=== PATIENT | female | born 1955 | race Caucasian/White ===

== ENCOUNTER 2017-10-28 15:50 | Emergency (ER) | payer OTHER ==
--- NOTE | 2017-10-28 16:10 | PDOC ---
History of Present Illness <Gregg Miller - Last Filed: 10/28/17 16:09> - General History Source: Patient Exam Limitations: No Limitations - History of Present Illness Initial Comments: 10/28/17 16:44 The patient is a 62 year old female with past medical history of Lupus and Rheumatoid Arthritis who presents to the ED with complaints of dizziness and abdominal pain for the past few days. The patient states that her symptoms came on suddenly while driving a few days ago where she got a headache and the room began to spin. At the same time, she began experiencing RUQ and RLQ pain. Although her headache has subsided, her other symptoms has persisted. She states her symptoms are associated with some nausea but no vomiting. She reports one episode of diarrhea as well. The patient went to her PCP today for her symptoms and was advised to go to the ER for evaluation of her gallbladder and her appendix. She denies any fever, chills, cough, SOB, CP, or urinary complaints. <Denise Delgadillo - Last Filed: 10/28/17 16:44> <Alfonso Walker - Last Filed: 10/28/17 19:30> - General Chief Complaint: Pain Stated Complaint: RIGHT ABDOMINAL PAIN Past History - Past Medical History Anemia: No Asthma: No Cancer: No Cardiac Disorders: No CVA: No COPD: No CHF: No Dementia: No Diabetes: No GI Disorders: No Disorders: No HTN: No Hypercholesterolemia: No Liver Disease: No Seizures: No Thyroid Disease: No - Surgical History Abdominal Surgery: No Appendectomy: No Cardiac Surgery: No Cholecystectomy: No Lung Surgery: No Neurologic Surgery: No Orthopedic Surgery: No - Suicide/Smoking/Psychosocial Hx Smoking History: Never smoked Have you smoked in the past 12 months: No Hx Alcohol Use: No Drug/Substance Use Hx: No Substance Use Type: None <Gregg Miller - Last Filed: 10/28/17 16:09> <Denise Delgadillo - Last Filed: 10/28/17 16:44> <Alfonso Walker - Last Filed: 10/28/17 19:30> - Past Medical History Allergies/Adverse Reactions: Allergies Allergy/AdvReac Type Severity Reaction Status Date / Time Cephalosporins Allergy Low Blood Verified 10/28/17 16:26 Pressure Sulfa (Sulfonamide Allergy Rash Verified 10/28/17 16:26 Antibiotics) [Sulfa(Sulfonamide Antibiotics)] Home Medications: Ambulatory Orders Hydroxychloroquine Sulfate [Plaquenil] 200 mg PO DAILY 10/28/17 Meclizine HCl 25 mg PO BID PRN #12 tab.chew 10/28/17 Metoclopramide HCl [Reglan] 10 mg PO BID PRN #8 tablet 10/28/17 Review of Systems - Review of Systems Able to Perform ROS?: Yes Comments:: 10/28/17 16:44 GENERAL/CONSTITUTIONAL: No fever or chills. No weakness. HEAD, EYES, EARS, NOSE AND THROAT: No change in vision. No ear pain or discharge. No sore throat. CARDIOVASCULAR: No chest pain or shortness of breath. RESPIRATORY: No cough, wheezing, or hemoptysis. GASTROINTESTINAL: Present: nausea, abdominal pain No vomiting or constipation. GENITOURINARY: No dysuria, frequency, or change in urination. MUSCULOSKELETAL: No joint or muscle swelling or pain. No neck or back pain. SKIN: No rash NEUROLOGIC: Present: headache, vertigo No loss of consciousness, or change in strength/sensation. ENDOCRINE: No increased thirst. No abnormal weight change. HEMATOLOGIC/LYMPHATIC: No anemia, easy bleeding, or history of blood clots. ALLERGIC/IMMUNOLOGIC: No hives or skin allergy. All Other Systems: Reviewed and Negative <Denise Delgadillo - Last Filed: 10/28/17 16:44> *Physical Exam - Vital Signs Last Vital Signs Temp Pulse Resp BP Pulse Ox 98.3 F 78 16 159/93 99 10/28/17 16:08 10/28/17 16:08 10/28/17 16:08 10/28/17 16:08 10/28/17 16:08 - Physical Exam Comments: 10/28/17 16:45 GENERAL: Awake, alert, and fully oriented, in no acute distress HEAD: No signs of trauma EYES: PERRLA, EOMI, sclera anicteric, conjunctiva clear ENT: Auricles normal inspection, hearing grossly normal, nares patent, oropharynx clear without exudates. Moist mucosa NECK: Normal ROM, supple, no lymphadenopathy, JVD, or masses LUNGS: Breath sounds equal, clear to auscultation bilaterally. No wheezes, and no crackles HEART: Regular rate and rhythm, normal S1 and S2, no murmurs, rubs or gallops ABDOMEN: Right sided abdominal wall tenderness. Soft, normoactive bowel sounds. No guarding, no rebound. No masses EXTREMITIES: Normal range of motion, no edema. No clubbing or cyanosis. No cords, erythema, or tenderness NEUROLOGICAL: Horizontal nystagmus. Cranial nerves II through XII grossly intact. Normal speech, normal gait SKIN: Warm, Dry, normal turgor, no rashes or lesions noted. <Denise Delgadillo - Last Filed: 10/28/17 16:44> - Vital Signs Last Vital Signs Temp Pulse Resp BP Pulse Ox 98.3 F 78 16 159/93 99 10/28/17 16:08 10/28/17 16:08 10/28/17 16:08 10/28/17 16:08 10/28/17 16:08 <Alfonso Walker - Last Filed: 10/28/17 19:30> ED Treatment Course - ADDITIONAL ORDERS Additional order review: Laboratory Results 10/28/17 16:10 Urine Color Yellow Urine Appearance Clear Urine pH 5.5 Ur Specific [place] >= 1.030 H Urine Protein Negative Urine Glucose (UA) Negative Urine Ketones Trace Urine Blood 1+ H Urine Nitrite Negative Urine Bilirubin 1+ H Urine Urobilinogen 0.2 Ur Leukocyte Esterase 2+ H <Denise Delgadilol - Last Filed: 10/28/17 16:44> - LABORATORY CBC & Chemistry Diagram: 10/28/17 16:50 10/28/17 16:50 - ADDITIONAL ORDERS Additional order review: Laboratory Results 10/28/17 10/28/17 10/28/17 16:50 16:50 16:50 PT with INR 12.4 INR 1.11 Sodium 139 Potassium 4.0 Chloride 103 Carbon Dioxide 27 Anion Gap 9 BUN 13 Creatinine 0.8 Creat Clearance w eGFR > 60 Random Glucose 102 Calcium 9.7 Total Bilirubin 0.6 AST 23 ALT 28 Alkaline Phosphatase 78 Total Protein 7.0 Albumin 4.7 Urine Color Urine Appearance Urine pH Ur Specific [place] Urine Protein Urine Glucose (UA) Urine Ketones Urine Blood Urine Nitrite Urine Bilirubin Urine Urobilinogen Ur Leukocyte Esterase Blood Type AB POSITIVE Antibody Screen Negative 10/28/17 16:10 PT with INR INR Sodium Potassium Chloride Carbon Dioxide Anion Gap BUN Creatinine Creat Clearance w eGFR Random Glucose Calcium Total Bilirubin AST ALT Alkaline Phosphatase Total Protein Albumin Urine Color Yellow Urine Appearance Clear Urine pH 5.5 Ur Specific [place] >= 1.030 H Urine Protein Negative Urine Glucose (UA) Negative Urine Ketones Trace Urine Blood 1+ H Urine Nitrite Negative Urine Bilirubin 1+ H Urine Urobilinogen 0.2 Ur Leukocyte Esterase 2+ H Blood Type Antibody Screen 10/28/17 16:50 RBC 5.55 H MCV 88.6 MCHC 33.2 RDW 12.2 MPV 8.9 Neutrophils % 49.5 Lymphocytes % 41.0 H Monocytes % 7.8 Eosinophils % 0.9 Basophils % 0.8 - Medications Given in the ED: ED Medications Discontinued Medications Generic Name Dose Route Start Last Admin Trade Name Freq PRN Reason Stop Dose Admin Meclizine HCl 25 mg 10/28/17 16:38 10/28/17 16:44 Antivert - PO 10/28/17 16:39 25 mg ONCE ONE Administration Ondansetron HCl 8 mg 10/28/17 17:13 10/28/17 18:25 Zofran Odt - SL 10/28/17 17:14 8 mg ONCE ONE Administration <Alfonso Walker - Last Filed: 10/28/17 19:30> Medical Decision Making - Medical Decision Making 10/28/17 19:27 no new/ changed urinary symptoms otherwise symptoamtically improved. reports of imaging given to pt to bring to MD. at time of discharge, neurologically intact complaining only of "unable to focus " <Alfonso Walker - Last Filed: 10/28/17 19:30> *DC/Admit/Observation/Transfer - Attestations Physician Attestion: 10/28/17 16:09 I, Dr. Gregg Miller, attest that this document has been prepared under my direction and personally reviewed by me in its entirety. I further attest, that it accurately reflects all work, treatment, procedures and medical decision -making performed by me. <Gregg Miller - Last Filed: 10/28/17 16:09> - Attestations Scribe Attestion: 10/28/17 16:46 Documentation prepared by Denise Delgadillo, acting as medical research scientist for Gregg Miller DO. <Denise Delgadillo - Last Filed: 10/28/17 16:44> <Alfonso Walker - Last Filed: 10/28/17 19:30> Diagnosis at time of Disposition: Vertigo - Discharge Dispostion Disposition: HOME Condition at time of disposition: Good - Referrals Referrals: Marisa Magallon [Primary Care Provider] - Call tomorrow - Patient Instructions Printed Discharge Instructions: DI for Vertigo - Post Discharge Activity
[2017-10-28 16:28] LABS: PH,URINE 5.5 (4.5-8); URINE APPEARANCE Clear; URINE BILIRUBIN 1+ (NEGATIVE); URINE GLUCOSE (UA) Negative (NEGATIVE); URINE KETONE Trace (NEGATIVE); URINE NITRITE Negative (NEGATIVE); URINE PROTEIN Negative (NEGATIVE); URINE UROBILINOGEN 0.2 (0.2-1.0)
[2017-10-28 16:29] LABS: URINE BLOOD 1+ (NEGATIVE); URINE COLOR YELLOW; URINE LEUK ESTERASE 2+ (NEGATIVE)
[2017-10-28 16:32] VITALS: BP 159/93; PULSE 78; TEMP 98.3; BMI 29.2
[2017-10-28] MEDS ORDERED: MECLIZINE HCL 25 MG TABLET (FP) PO ONE (16:38)
[2017-10-28] MEDS ORDERED: MECLIZINE HCL 25 MG TABLET (FP) ONE (16:42)
[2017-10-28] MEDS ORDERED: ONDANSETRON *ODT* 4 MG TABLET SL ONE (17:13)
[2017-10-28 17:14] LABS: BASOPHIL 0.8 % (0-2.0); EOSINOPHIL 0.9 % (0-4.5); MCH 29.4 pg (25.7-33.7); MCHC 33.2 g/dl (32.0-36.0); MEAN CELL VOLUME 88.6 fl (80-96); MEAN PLT VOLUME 8.9 fl (7.5-11.1); NEUTROPHILS 49.5 % (42.8-82.8); PLATELET COUNT 273 K/MM3 (134-434); RDW 12.2 % (11.6-15.6)
[2017-10-28 17:20] LABS: INR 1.11 (0.82-1.09); PROTHROMBIN TIME (PATIENT) 12.4 SEC (10.2-13.0)
[2017-10-28 17:25] LABS: ALBUMIN 4.7 g/dl (3.5-5.0); ALK PHOS 78 U/L (32-92); ANION GAP 9 (8-16); BILIRUBIN,TOTAL 0.6 mg/dl (0.2-1.0); CALCIUM 9.7 mg/dl (8.4-10.2); CO2 27 mmol/L (22-28); CREATININE 0.8 mg/dl (0.6-1.3); GLUCOSE,RANDOM 102 mg/dl (74-106); SGOT/AST 23 U/L (10-42); SGPT/ALT 28 U/L (10-40)
[2017-10-28] MEDS ORDERED: ONDANSETRON *ODT* 4 MG TABLET ONE (18:25)
[2017-10-28 21:38] LABS: URINE BACTERIA FEW /hpf (NEGATIVE)
== END 2017-10-28 19:43 | disposition home or self-care (01) ==
LOC: FER 15:50
DX: R42 Dizziness and giddiness (principal); M06.9 Rheumatoid arthritis, unspecified; M32.9 Systemic lupus erythematosus, unspecified
CPT/HCPCS: 36415; 70450-TC; 74177-TC; 76705-TC; 80053; 81003; 81015; 85025; 85610; 86850; 86900; 86901; 87086; 99283-25

== ENCOUNTER 2018-04-29 13:48 | Emergency (ER) | payer OTHER ==
[2018-04-29 13:54] VITALS: BMI 31.1
--- NOTE | 2018-04-29 14:42 | PDOC ---
History of Present Illness - General History Source: Patient Exam Limitations: No Limitations - History of Present Illness Initial Comments: 04/29/18 15:02 The patient is a 63 year old female with a significant PMH of reactive hypoglycemia, Lupus and Rheumatoid Arthritis who presents to the emergency department with sudden onset palpitations today. The patient states she was gardening prior to arrival when she noticed her heart began racing. The patient endorses nausea and loss of appetite so she has been drinking protein smoothies for the last few days. The patient denies feeling palpitations during presentation but is still complaining of chest tightness. The patient denies any heavy lifting. Denies additional leg swelling. The patient has no known cardiac history. She has a stress test scheduled in 2 weeks. The patient denies shortness of breath, headache and dizziness. Denies fever, chills, nausea, vomit, diarrhea and constipation. Denies dysuria, frequency, urgency and hematuria. Allergies: Cephalosporins, Sulfa Past surgical history: None reported. Social history: No reported alcohol, drug, or cigarette use. PCP: Dr. Magallon <Sandy Ordaz - Last Filed: 04/29/18 15:02> <Jocelyn Sapp - Last Filed: 04/30/18 09:46> - General Chief Complaint: Palpitations Stated Complaint: CHEST PAIN Time Seen by Provider: 04/29/18 14:42 Past History <Sandy Ordaz - Last Filed: 04/29/18 15:02> - Past Medical History Anemia: No Asthma: No Cancer: No Cardiac Disorders: Yes (tachycardia) CVA: No COPD: No CHF: No Dementia: No Diabetes: No GI Disorders: No Disorders: No HTN: Yes (not medicated) Hypercholesterolemia: No Liver Disease: No Seizures: No Thyroid Disease: No Other medical history: reactive hypoglycemia - Surgical History Abdominal Surgery: No Appendectomy: No Cardiac Surgery: No Cholecystectomy: No Lung Surgery: No Neurologic Surgery: No Orthopedic Surgery: No - Suicide/Smoking/Psychosocial Hx Smoking History: Never smoked Have you smoked in the past 12 months: No Hx Alcohol Use: No Drug/Substance Use Hx: No Substance Use Type: None <Jocelyn Sapp - Last Filed: 04/30/18 09:46> - Past Medical History Allergies/Adverse Reactions: Allergies Allergy/AdvReac Type Severity Reaction Status Date / Time Cephalosporins Allergy Low Blood Verified 04/29/18 13:54 Pressure Sulfa (Sulfonamide Allergy Rash Verified 04/29/18 13:54 Antibiotics) [Sulfa(Sulfonamide Antibiotics)] Home Medications: Ambulatory Orders levoFLOXacin [Levaquin -] 250 mg PO DAILY #2 tablet 04/29/18 Review of Systems - Review of Systems Able to Perform ROS?: Yes Comments:: 04/29/18 15:04 GENERAL/CONSTITUTIONAL: No fever or chills. No weakness. HEAD, EYES, EARS, NOSE AND THROAT: No change in vision. No ear pain or discharge. No sore throat. CARDIOVASCULAR: (+) Palpitations. (+) Chest tightness. No shortness of breath. RESPIRATORY: No cough, wheezing, or hemoptysis. GASTROINTESTINAL: No nausea, vomiting, diarrhea or constipation. GENITOURINARY: No dysuria, frequency, or change in urination. MUSCULOSKELETAL: No joint or muscle swelling or pain. No neck or back pain. SKIN: No rash NEUROLOGIC: No headache, vertigo, loss of consciousness, or change in strength/ sensation. ENDOCRINE: No increased thirst. No abnormal weight change. HEMATOLOGIC/LYMPHATIC: No anemia, easy bleeding, or history of blood clots. ALLERGIC/IMMUNOLOGIC: No hives or skin allergy. <Sandy Ordaz - Last Filed: 04/29/18 15:02> *Physical Exam - Vital Signs Last Vital Signs Temp Pulse Resp BP Pulse Ox 97.7 F 107 H 20 161/82 98 04/29/18 13:51 04/29/18 13:51 04/29/18 13:51 04/29/18 13:51 04/29/18 13:51 <Sandy Ordaz - Last Filed: 04/29/18 15:02> - Vital Signs Last Vital Signs Temp Pulse Resp BP Pulse Ox 97.7 F 107 H 20 161/82 98 04/29/18 13:51 04/29/18 13:51 04/29/18 13:51 04/29/18 13:51 04/29/18 13:51 - Physical Exam Comments: GENERAL: Awake, alert, and fully oriented, in no acute distress HEAD: No signs of trauma EYES: PERRLA, EOMI, sclera anicteric, conjunctiva clear ENT: Auricles normal inspection, hearing grossly normal, nares patent, oropharynx clear without exudates. Moist mucosa NECK: Normal ROM, supple, no lymphadenopathy, JVD, or masses LUNGS: Breath sounds equal, clear to auscultation bilaterally. No wheezes, and no crackles HEART: Regular rate and rhythm, normal S1 and S2, no murmurs, rubs or gallops ABDOMEN: Soft, nontender, normoactive bowel sounds. No guarding, no rebound. No masses EXTREMITIES: Normal range of motion, no edema. No clubbing or cyanosis. No cords, erythema, or tenderness NEUROLOGICAL: Cranial nerves II through XII grossly intact. Normal speech, normal gait SKIN: Warm, Dry, normal turgor, no rashes or lesions noted. <Jocelyn Sapp - Last Filed: 04/30/18 09:46> Heart Score/ECG Review - ECG Impressions Comment:: EKG read 14:03- NSR 89 bpm, no acute ST/T changes <Jocelyn Sapp - Last Filed: 04/30/18 09:46> ED Treatment Course - LABORATORY CBC & Chemistry Diagram: 04/29/18 14:58 04/29/18 14:58 <Jocelyn Sapp - Last Filed: 04/30/18 09:46> Medical Decision Making - Medical Decision Making Labs reviewed. Patient found to have UTI. TSH wnl. Her symptoms may have been related to working outside in very high heat and humidity. Patient has cephalosporin and sulfa allergy, will treat with levaquin x3 days. <Jocelyn Sapp - Last Filed: 04/30/18 09:46> *DC/Admit/Observation/Transfer - Attestations Scribe Attestion: 04/29/18 15:04 Documentation prepared by Sandy Ordaz, acting as medical billing associate for Jocelyn Sapp MD. <Sandy Ordaz - Last Filed: 04/29/18 15:02> - Discharge Dispostion Decision to Admit order: No <Jocelyn Sapp - Last Filed: 04/30/18 09:46> Diagnosis at time of Disposition: Palpitations UTI (urinary tract infection) Qualifiers: Urinary tract infection type: acute cystitis Hematuria presence: without hematuria Qualified Code(s): N30.00 - Acute cystitis without hematuria - Discharge Dispostion Disposition: HOME Condition at time of disposition: Stable - Prescriptions Prescriptions: levoFLOXacin [Levaquin -] 250 mg PO DAILY #2 tablet - Referrals Referrals: Marisa Magallon [Primary Care Provider] - - Patient Instructions Printed Discharge Instructions: DI for Urinary Tract Infection (UTI), DI for Palpitations - Post Discharge Activity
[2018-04-29 15:07] LABS: URINE APPEARANCE CLEAR; URINE BILIRUBIN NEGATIVE (<2.0 mg/dL); URINE COLOR YELLOW; URINE GLUCOSE (UA) NEGATIVE (NEGATIVE); URINE KETONE 1+ (NEGATIVE); URINE NITRITE NEGATIVE (NEGATIVE); URINE PROTEIN NEGATIVE (NEGATIVE); URINE UROBILINOGEN NEGATIVE mg/dL (0.2-1.0)
[2018-04-29 15:08] LABS: BASO % 0.5 % (0-2.0); EOS % 0.4 % (0-4.5); HEMATOCRIT 45.1 % (32.4-45.2); HEMOGLOBIN 15.2 GM/dL (10.7-15.3); MCH 30.1 pg (25.7-33.7); MCHC 33.6 g/dl (32.0-36.0); MEAN CELL VOLUME 89.6 fl (80-96); MEAN PLT VOLUME 9.3 fl (7.5-11.1); MONO % 6.5 % (3.8-10.2); NEUT % 66.6 % (42.8-82.8); PLATELET COUNT 244 K/MM3 (134-434); RBC 5.03 M/mm3 (3.60-5.2); RDW 13.3 % (11.6-15.6); WHITE BLOOD COUNT 6.3 K/mm3 (4.0-10.0)
[2018-04-29 15:14] LABS: URINE LEUK ESTERASE 2+ (NEGATIVE)
[2018-04-29 15:34] LABS: EPI CELLS RARE /HPF (FEW); URINE MUCUS FEW
[2018-04-29 15:43] LABS: ALBUMIN 4.4 g/dl (3.4-5.0); ANION GAP 13 (8-16); BILIRUBIN,TOTAL 0.6 mg/dL (0.2-1.0); BLOOD UREA NITROGEN 17 mg/dL (7-18); CALCIUM 9.1 mg/dL (8.5-10.1); CHLORIDE 102 mmol/L (98-107); CO2 24 mmol/L (21-32); CREATININE 0.9 mg/dL (0.55-1.02); GLUCOSE,RANDOM 82 mg/dL (74-106); POTASSIUM 3.9 mmol/L (3.5-5.1); SGOT/AST 18 U/L (15-37); SGPT/ALT 29 U/L (12-78); SODIUM 139 mmol/L (136-145); TOT PROT 7.1 g/dl (6.4-8.2)
[2018-04-29 15:50] LABS: ALK PHOS 90 U/L (45-117)
[2018-04-29 16:47] VITALS: BP 125/81; PULSE 63; TEMP 98.1
--- NOTE | 2018-04-30 22:11 | EKG ---
Test Reason : Blood Pressure : / mmHG Vent. Rate : 086 BPM Atrial Rate : 086 BPM P-R Int : 116 ms QRS Dur : 088 ms QT Int : 348 ms P-R-T Axes : 026 014 055 degrees QTc Int : 416 ms NORMAL SINUS RHYTHM NORMAL ECG WHEN COMPARED WITH ECG OF 13-JUL-2012 13:54, NO SIGNIFICANT CHANGE WAS FOUND Confirmed by LELO HAWKINS MD ([id number]) on 04/30/2018 10:10:49 PM Referred By: Confirmed By:LELO HAWKINS MD
== END 2018-04-29 16:47 | disposition home or self-care (01) ==
LOC: JER 13:48
DX: N30.00 Acute cystitis without hematuria (principal); R00.2 Palpitations; M06.9 Rheumatoid arthritis, unspecified; M32.9 Systemic lupus erythematosus, unspecified; E16.1 Other hypoglycemia
CPT/HCPCS: 36415; 71045-TC-FY; 80053; 81003; 81015; 82550; 84443; 84484; 85025; 87086; 93005; 93010; 99284-25

== ENCOUNTER 2019-08-22 04:29 | Emergency (ER) | payer OTHER ==
--- NOTE | 2019-08-22 05:06 | PDOC ---
History of Present Illness - General Chief Complaint: Migraine Headache Stated Complaint: HEADACHE/NAUSEA Time Seen by Provider: 08/22/19 05:04 - History of Present Illness Initial Comments: 08/22/19 05:04 Ms. Saldana is a 64 yo female w/ pmh of Lupus, Rheumatoid Arthritis, reactive hypoglycemia, and "chronic lyme-like illness" who presents for evaluation of worsening of chronic 1 month headache. Patient reports symptoms started 1 month ago with "thunderclap headache" for which she has seen PCP, Neurologist, and received MRA yesterday (results unknown at this time). Patient reports headache has waxed and waned over the past month however woke her from sleep this morning , prompting her visit with additional fast heart beat. She describes headache as in the back of her head and radiating to her neck. Endorses some nausea w/ out emesis. Denies other symptoms at this time. The patient denies chest pain, shortness of breath, and dizziness. Denies fever , chills, vomit, diarrhea and constipation. Denies dysuria, frequency, urgency and hematuria. Past History - Past Medical History Allergies/Adverse Reactions: Allergies Allergy/AdvReac Type Severity Reaction Status Date / Time Cephalosporins Allergy Low Blood Verified 08/22/19 05:12 Pressure Sulfa (Sulfonamide Allergy Rash Verified 08/22/19 05:12 Antibiotics) [Sulfa(Sulfonamide Antibiotics)] Home Medications: Ambulatory Orders levoFLOXacin [Levaquin -] 250 mg PO DAILY #2 tablet 04/29/18 Anemia: No Asthma: No Cancer: No Cardiac Disorders: Yes (tachycardia) CVA: No COPD: No CHF: No Dementia: No Diabetes: No GI Disorders: No Disorders: No HTN: Yes (not medicated) Hypercholesterolemia: No Liver Disease: No Seizures: No Thyroid Disease: No - Surgical History Abdominal Surgery: No Appendectomy: No Cardiac Surgery: No Cholecystectomy: No Lung Surgery: No Neurologic Surgery: No Orthopedic Surgery: No - Psycho Social/Smoking Cessation Hx Smoking History: Never smoked Have you smoked in the past 12 months: No Hx Alcohol Use: No Drug/Substance Use Hx: No Substance Use Type: None Review of Systems - Review of Systems Comments:: 08/22/19 05:05 GENERAL/CONSTITUTIONAL: No fever or chills. No weakness. HEAD, EYES, EARS, NOSE AND THROAT: No change in vision. No ear pain or discharge. No sore throat. CARDIOVASCULAR: No chest pain or shortness of breath RESPIRATORY: No cough, wheezing, or hemoptysis. GASTROINTESTINAL: +Nausea as described. No vomiting, diarrhea or constipation. GENITOURINARY: No dysuria, frequency, or change in urination. MUSCULOSKELETAL: No joint or muscle swelling or pain. No neck or back pain. SKIN: No rash NEUROLOGIC: +Headache as described. No vertigo, loss of consciousness, or change in strength/sensation. ENDOCRINE: No increased thirst. No abnormal weight change HEMATOLOGIC/LYMPHATIC: No anemia, easy bleeding, or history of blood clots. ALLERGIC/IMMUNOLOGIC: No hives or skin allergy. *Physical Exam - Physical Exam Comments: 08/22/19 05:05 GENERAL: Awake, alert, and fully oriented, in no acute distress HEAD: No signs of trauma, normocephalic, atraumatic EYES: PERRLA, EOMI, sclera anicteric, conjunctiva clear ENT: Auricles normal inspection, hearing grossly normal, nares patent, oropharynx clear without exudates. Moist mucosa NECK: Normal ROM, supple, no lymphadenopathy, JVD, or masses LUNGS: No distress, speaks full sentences, clear to auscultation bilaterally HEART: Regular rate and rhythm, normal S1 and S2, no murmurs, rubs or gallops, peripheral pulses normal and equal bilaterally. ABDOMEN: Soft, nontender, normoactive bowel sounds. No guarding, no rebound. No masses EXTREMITIES: Normal inspection, Normal range of motion, no edema. No clubbing or cyanosis. NEUROLOGICAL: Cranial nerves II through XII grossly intact. Normal speech, normal gait, no focal sensorimotor deficits SKIN: Warm, Dry, normal turgor, no rashes or lesions noted. ED Treatment Course - LABORATORY CBC & Chemistry Diagram: 08/22/19 07:31 08/22/19 05:35 Medical Decision Making - Medical Decision Making 08/22/19 05:23 Ms. Saldana is a 64 yo female w/ pmh as described who presents for evaluation of headache w/ nausea. Patient describes headache as "like a thunderclap" and does not know results of prior MRA at this time. Will evaluate for acute process w/ Head CT as well as Head/Neck CTA and treat symptomatically. Further workup pending. 08/22/19 07:02 Patient labs as below grossly wnl. Patient pending imaging at this time. Patient signed out to Dr. Coelho for further evaluation. *DC/Admit/Observation/Transfer Diagnosis at time of Disposition: Headache Qualifiers: Headache type: unspecified Headache chronicity pattern: unspecified pattern Intractability: not intractable Qualified Code(s): R51 - Headache - Discharge Dispostion Disposition: HOME Condition at time of disposition: Stable - Referrals Referrals: Marisa Magallon [Primary Care Provider] - - Patient Instructions Printed Discharge Instructions: DI for Headache Additional Instructions: Please call Dr. Flores at [facility] to arrange follow up and for further evaluation of your headache. Please drink plenty of fluids. Please return to the ED with any further concerns or complaints. Please follow up with your PMD as well this week. - Post Discharge Activity Discharge - Discharge Information Problems reviewed: Yes Clinical Impression/Diagnosis: Headache Qualifiers: Headache type: unspecified Headache chronicity pattern: unspecified pattern Intractability: not intractable Qualified Code(s): R51 - Headache Condition: Stable Disposition: HOME - Follow up/Referral Referrals: Marisa Magallon [Primary Care Provider] - - Patient Discharge Instructions Patient Printed Discharge Instructions: DI for Headache Additional Instructions: Please call Dr. Flores at [facility] to arrange follow up and for further evaluation of your headache. Please drink plenty of fluids. Please return to the ED with any further concerns or complaints. Please follow up with your PMD as well this week. - Post Discharge Activity
--- NOTE | 2019-08-22 05:06 | PDOC ---
Attending Attestation - Resident Resident Name: Greg Rae - ED Attending Attestation I have performed the following: I have examined & evaluated the patient, The case was reviewed & discussed with the resident, I agree w/resident's findings & plan - HPI HPI: 08/22/19 20:11 see resident hpi - Physicial Exam PE: 08/22/19 20:12 agree with resident exam - Medical Decision Making 08/22/19 20:12 64-year-old with chronic headache CTA of the head and neck as well asplain CT of the head signed out to oncoming provider Patient given Tylenol and Reglanas well as IV fluids for left posterior headache
[2019-08-22 05:12] VITALS: BMI 28.3
[2019-08-22] MEDS ORDERED: METOCLOPRAMIDE HCL INJECTION 10 MG/2 ML VIAL IVPB ONE (05:15)
[2019-08-22] MEDS ORDERED: METOCLOPRAMIDE HCL INJECTION 10 MG/2 ML VIAL ONE (06:23)
[2019-08-22 06:42] LABS: ALBUMIN 4.3 g/dl (3.4-5.0); BILIRUBIN,TOTAL 0.8 mg/dL (0.2-1); BLOOD UREA NITROGEN 18.7 mg/dL (7-18); CALCIUM 9.1 mg/dL (8.5-10.1); CREATININE 0.9 mg/dL (0.55-1.3); TOT PROT 7.1 g/dl (6.4-8.2)
[2019-08-22] MEDS ORDERED: SODIUM CHLORIDE 1,000 ML IV STA (07:01)
[2019-08-22] MEDS ORDERED: ACETAMINOPHEN 1000 MG/100 ML VIAL (NON FORMULARY) IVPB ONE (07:02)
[2019-08-22] MEDS ORDERED: ACETAMINOPHEN INJECTION 100 ML IVPB ONE (07:20)
--- NOTE | 2019-08-22 07:45 | PDOC ---
*Physical Exam - Vital Signs Last Vital Signs Temp Pulse Resp BP Pulse Ox 98.3 F 83 15 141/76 100 08/22/19 04:30 08/22/19 04:30 08/22/19 04:30 08/22/19 04:30 08/22/19 04:30 - Physical Exam Comments: 08/22/19 07:37 Gen: aaox3, nad heent: PERRL, EOMI, MMM Neck: supple, no midline ttp, no stepoffs or deformities, L paraspinal ttp heart: +s1s2 reg lungs: cta b/l abd: soft, nt/nd +bs ext: no c/c/e neuro: cn ii-xii grossly intact, muscle strength 5/5 UE and LE, sensation intact , no focal deficits skin: no rashes visualized ED Treatment Course - LABORATORY CBC & Chemistry Diagram: 08/22/19 07:31 08/22/19 05:35 - ADDITIONAL ORDERS Additional order review: Laboratory Results 08/22/19 05:35 Sodium 139 Potassium 5.0 Chloride 104 Carbon Dioxide 27 Anion Gap 8 BUN 18.7 H Creatinine 0.9 Est GFR (CKD-EPI)AfAm 79.42 Est GFR (CKD-EPI)NonAf 68.53 Random Glucose 114 H Calcium 9.1 Total Bilirubin 0.8 AST 35 ALT 30 Alkaline Phosphatase 73 Total Protein 7.1 Albumin 4.3 08/22/19 05:35 RBC Cancelled MCV Cancelled MCHC Cancelled RDW Cancelled MPV Cancelled Neutrophils % Cancelled Lymphocytes % Cancelled Monocytes % Cancelled Eosinophils % Cancelled Basophils % Cancelled - Medications Given in the ED: ED Medications Discontinued Medications Generic Name Dose Route Start Last Admin Trade Name Freq PRN Reason Stop Dose Admin Metoclopramide HCl 10 mg 08/22/19 05:15 08/22/19 06:15 Reglan Injection - IVPB 08/22/19 05:16 10 mg ONCE ONE Administration Medical Decision Making - Medical Decision Making Medical Decision Making: a/p: 64yo female with 1 month of dodge from L posterior neck up L occipital region -pt signed out from the night attending pending ct head and cta head/neck -pt had outpt mri from Dr. Flores ([facility] Neuro-DODGE specialist) - showed mild foci of chronic small vessel ischemia/infarction. Capillary telangiectasia and develoopment of venous anomaly noted n the right temporal lobe. Overall no signif change when compared to 05/14/18, allowing for technical variation. -pt saw Dr. Flores yesterday and underwent MRA imaging- no results as of now. -pt without neuro deficits. -pt labs reviewed -no meds tried at home -pt has not tried meds x 1m at home -no meds prescribed by neuro -pt states reglan helped with pain -tylenol and ivf hydration ordered 8:49a ct head and cta head and neck without acute vascular anomoly mild degenerative changes in neck discussed imaging results with patient call placed to [facility] to obtain MRA results as well - Dr. Flores will give decadron and toradol pt states feeling better, still with dodge 9:20a case discussed with [employer] for Dr. Flores -[facility] Mikie normal MRA, no clear cause of dodge f/u in office in 6 weeks pt being remedicated now discussed MRA results and plan from Dr Flores pt agrees with the plan will reassess after meds 9:47a pt feeling better texting on her ipad will call neuro for follow up answered all quesitons and discussed all reasons to return to the ED stable for dc to home Discharge - Discharge Information Problems reviewed: Yes Clinical Impression/Diagnosis: Headache Condition: Stable Disposition: HOME - Admission No - Follow up/Referral Referrals: Marisa Magallon [Primary Care Provider] - - Patient Discharge Instructions Patient Printed Discharge Instructions: DI for Headache Additional Instructions: Please call Dr. Flores at [facility] to arrange follow up and for further evaluation of your headache. Please drink plenty of fluids. Please return to the ED with any further concerns or complaints. Please follow up with your PMD as well this week. - Post Discharge Activity
[2019-08-22 08:06] LABS: BASO % 0.8 % (0-2.0); EOS % 0.3 % (0-4.5); HEMATOCRIT 42.5 % (32.4-45.2); HEMOGLOBIN 14.2 GM/dL (10.7-15.3); LYMPH % 31.7 % (8-40); MCH 30.7 pg (25.7-33.7); MCHC 33.5 g/dl (32.0-36.0); MEAN CELL VOLUME 91.7 fl (80-96); MEAN PLT VOLUME 8.8 fl (7.5-11.1); NEUT % 58.2 % (42.8-82.8); PLATELET COUNT 234 K/MM3 (134-434); RBC 4.64 M/mm3 (3.60-5.2); RDW 13.8 % (11.6-15.6); WHITE BLOOD COUNT 4.1 K/mm3 (4.0-10.0)
[2019-08-22 08:26] VITALS: BP 113/67; PULSE 75; TEMP 98.1
[2019-08-22] MEDS ORDERED: KETOROLAC TROMETHAMINE 30 MG/1 ML VIAL IVPUSH ONE (08:48)
[2019-08-22] MEDS ORDERED: DEXAMETHASONE SOD PHOSPHATE 10 MG/1 ML VIAL IVPUSH ONE (08:48)
[2019-08-22] MEDS ORDERED: KETOROLAC TROMETHAMINE 30 MG/1 ML VIAL ONE (09:03)
[2019-08-22] MEDS ORDERED: DEXAMETHASONE SOD PHOSPHATE 10 MG/1 ML VIAL ONE (09:03)
== END 2019-08-22 10:00 | disposition home or self-care (01) ==
LOC: JER 04:29
PROC: 3E0337Z Introduction of Electrolytic and Water Balance Substance into Peripheral Vein, Percutaneous Approach (ICD-10-PCS; principal; 2019-08-22)
PROC: 3E0333Z Introduction of Anti-inflammatory into Peripheral Vein, Percutaneous Approach (ICD-10-PCS; 2019-08-22)
PROC: 3E0333Z Introduction of Anti-inflammatory into Peripheral Vein, Percutaneous Approach (ICD-10-PCS; 2019-08-22)
PROC: 3E033GC Introduction of Other Therapeutic Substance into Peripheral Vein, Percutaneous Approach (ICD-10-PCS; 2019-08-22)
PROC: 3E033NZ Introduction of Analgesics, Hypnotics, Sedatives into Peripheral Vein, Percutaneous Approach (ICD-10-PCS; 2019-08-22)
DX: R51 Headache (principal); M32.9 Systemic lupus erythematosus, unspecified; M06.80 Other specified rheumatoid arthritis, unspecified site; E16.1 Other hypoglycemia; I10 Essential (primary) hypertension; Z88.1 Allergy status to other antibiotic agents
CPT/HCPCS: 36415; 70450-TC; 70496-TC; 70498-TC; 80053; 85025; 99284-25; J0131; J1100; J7030

== ENCOUNTER 2019-12-01 09:17 | Emergency (ER) | payer OTHER ==
--- NOTE | 2019-12-01 09:21 | PDOC ---
History of Present Illness - General Chief Complaint: Pain Stated Complaint: ABD PAIN Time Seen by Provider: 12/01/19 09:19 History Source: Patient - History of Present Illness Initial Comments: 12/01/19 09:20 Ms. Saldana is a 64 y/o woman with no PMH presenting referred by her PCP (Dr. Dominguez) for abdominal pain after LFTs found to be elevated on bloodwork. She reports that 3 days ago while exercising she began to note 8/10 epigastric pain as well as nausea and palpitations. She presented to her PCP the following day who ordered bloodwork and f/u US 3 days from today. She reports receiving a phone call that her liver enzymes had been elevated, and that if she continued to have symptoms to present to the ED. She reports recent tx with abx for a sinus infection, and constipation for the last 3 days. She reports ongoing nausea and abdominal pain. No chest pain, sob, vomiting, fevers, chills, weakness, confusion. Past History - Past Medical History Allergies/Adverse Reactions: Allergies Allergy/AdvReac Type Severity Reaction Status Date / Time Cephalosporins Allergy Low Blood Verified 08/22/19 05:12 Pressure Sulfa (Sulfonamide Allergy Rash Verified 08/22/19 05:12 Antibiotics) [Sulfa(Sulfonamide Antibiotics)] Home Medications: Ambulatory Orders NK [No Known Home Medication] 12/01/19 Anemia: No Asthma: No Cancer: No Cardiac Disorders: Yes (tachycardia) CVA: No COPD: No CHF: No Dementia: No Diabetes: No GI Disorders: No Disorders: No HTN: Yes (not medicated) Hypercholesterolemia: No Liver Disease: No Seizures: No Thyroid Disease: No - Surgical History Abdominal Surgery: No Appendectomy: No Cardiac Surgery: No Cholecystectomy: No Lung Surgery: No Neurologic Surgery: No Orthopedic Surgery: No - Psycho Social/Smoking Cessation Hx Smoking History: Never smoked Have you smoked in the past 12 months: No Hx Alcohol Use: No Drug/Substance Use Hx: No Substance Use Type: None Review of Systems - Review of Systems Able to Perform ROS?: Yes Comments:: 12/01/19 09:52 ROS: GENERAL/CONSTITUTIONAL: No fever or chills. No weakness. HEAD, EYES, EARS, NOSE AND THROAT: No change in vision. No ear pain or discharge. No sore throat. CARDIOVASCULAR: No chest pain or shortness of breath RESPIRATORY: No cough, wheezing, or hemoptysis. GASTROINTESTINAL: Nausea, constipation. No vomiting, diarrhea GENITOURINARY: No dysuria, frequency, or change in urination. MUSCULOSKELETAL: No joint or muscle swelling or pain. No neck or back pain. SKIN: No rash NEUROLOGIC: No headache, vertigo, loss of consciousness, or change in strength/ sensation. ENDOCRINE: No increased thirst. No abnormal weight change HEMATOLOGIC/LYMPHATIC: No anemia, easy bleeding, or history of blood clots. ALLERGIC/IMMUNOLOGIC: No hives or skin allergy. *Physical Exam - Physical Exam 12/01/19 09:53 PE: GENERAL: Awake, alert, and fully oriented HEAD: No signs of trauma, normocephalic, atraumatic EYES: PERRLA, EOMI, sclera anicteric, conjunctiva clear ENT: Auricles normal inspection, hearing grossly normal, nares patent, oropharynx clear without exudates. Moist mucosa NECK: Normal ROM, supple, no lymphadenopathy, JVD, or masses LUNGS: No distress, speaks full sentences, clear to auscultation bilaterally HEART: Regular rate and rhythm, normal S1 and S2, no murmurs, rubs or gallops, peripheral pulses normal and equal bilaterally. ABDOMEN: Epigastric, RUQ tenderness. Otherwise: soft, normoactive bowel sounds. No guarding, no rebound. No masses EXTREMITIES : Normal inspection, Normal range of motion, no edema. No clubbing or cyanosis NEUROLOGICAL: Cranial nerves II through XII grossly intact. Normal speech, normal gait, no focal sensorimotor deficits SKIN: Warm, Dry, normal turgor, no rashes or lesions noted ED Treatment Course - LABORATORY CBC & Chemistry Diagram: 12/01/19 10:00 12/01/19 10:00 Medical Decision Making - Medical Decision Making 12/01/19 09:54 64F w/no PMH p/w 3 days of nausea, epigastric and RUQ abdominal pain with liver enzyme elevation on PCP labs. Differential includes gallstones, pancreatitis given nausea, pain, and LFT elevation. Gastritis also possible given location of pain. Plan: CBC CMP Lipase Cardiac profile EKG CXR Zofran 4 Pepcid 20 1L LR US abdomen Dispo: Pending --- Lipase - negative Troponin - negative CBC - wnl CMP - AST - wnl, AST - 96 US - negative for acute process On reassessment, symptoms improved with medication, fluids. Plan for discharge, PCP and GI follow up. Discharge - Discharge Information Problems reviewed: Yes Clinical Impression/Diagnosis: Gastritis Qualifiers: Gastritis type: unspecified gastritis Chronicity: acute Gastritis bleeding: presence of bleeding unspecified Qualified Code(s): K29.00 - Acute gastritis without bleeding Condition: Stable Disposition: HOME - Admission No - Follow up/Referral Referrals: Belen Dominguez MD [Primary Care Provider] - Bogdan Nguyen DO [Staff Physician] - [facility] [place] [facility] [place] [Provider Group] - Patient Discharge Instructions Patient Printed Discharge Instructions: DI for Gastritis Additional Instructions: You were seen in the ER for abdominal pain. Your ultrasound was negative. Your bloodwork showed a small increase in one of your liver enzymes, but the other was normal. The rest of your blood work was normal. We are giving you a referral for a aids counselor (intestines doctor) and a primary care doctor. Please follow up with them as soon as possible. Please return to the ER if you develop worsening pain, weakness, high fevers. - Post Discharge Activity
[2019-12-01] MEDS ORDERED: ONDANSETRON 4 MG/2 ML VIAL IVPUSH ONE (09:32)
[2019-12-01] MEDS ORDERED: LACTATED RINGERS SOLUTION 1000 ML INFUS.BAG IV ONE (09:32)
[2019-12-01] MEDS ORDERED: FAMOTIDINE 20 MG/50 ML IVPB 20 MG/50 ML MG IVPB ONE ×2 (09:32→10:03)
[2019-12-01 09:33] VITALS: TEMP 98.6; BMI 30.2
[2019-12-01 10:02] LABS: EPITHELIAL CELLS MODERATE /hpf
[2019-12-01] MEDS ORDERED: ONDANSETRON 4 MG/2 ML VIAL ONE (10:04)
[2019-12-01 10:16] LABS: BASO % 0.8 % (0-2.0); HEMATOCRIT 47.1 % (32.4-45.2); HEMOGLOBIN 15.8 GM/dl (10.7-15.3); LYMPH % 33.3 % (8-40); MCH 31.2 pg (25.7-33.7); MCHC 33.5 g/dl (32.0-36.0); MEAN CELL VOLUME 93.3 fl (80-96); MEAN PLT VOLUME 8.5 fl (7.5-11.1); MONO % 9.6 % (3.8-10.2); NEUT % 55.3 % (42.8-82.8); PLATELET COUNT 287 K/MM3 (134-434); RBC 5.05 M/mm3 (3.60-5.2); WHITE BLOOD COUNT 3.9 K/mm3 (4.0-10.8)
[2019-12-01 10:24] LABS: ALBUMIN 4.3 g/dl (3.4-5.0); BILIRUBIN,TOTAL 0.8 mg/dl (0.2-1); CALCIUM 8.9 mg/dl (8.5-10); CREATININE 0.8 mg/dl (0.55-1.3); POTASSIUM 3.7 mmol/L (3.5-5.1); TOT PROT 6.6 g/dl (6.4-8.2)
--- NOTE | 2019-12-01 10:55 | PDOC ---
Attending Attestation - Resident Resident Name: Scar Bhandari - ED Attending Attestation I have performed the following: I have examined & evaluated the patient, The case was reviewed & discussed with the resident, I agree w/resident's findings & plan, Exceptions are as noted - HPI HPI: 12/01/19 10:55 64 F with h/o Lupus, Rheumatoid Arthritis, reactive hypoglycemia, presenting to ED with abdominal pain. Pt reports 3 days of epigastric pain. Endorses nausea without vomiting. Denies diarrhea/constipation. Pt reports that she went to her PCP, Dr. Dominguez, who checked labs and found her to have elevated LFTs. Pt denies CP/SOB. Denies F/C. - Physicial Exam PE: 12/01/19 11:01 "GENERAL: Awake, alert, and fully oriented, in no acute distress. HEAD: No signs of trauma EYES: PERRLA, EOMI, sclera anicteric, conjunctiva clear ENT: Auricles normal inspection, hearing grossly normal, nares patent, oropharynx clear without exudates. Moist mucosa NECK: Nontender, no stepoffs, Normal ROM, supple, no lymphadenopathy, JVD, or masses LUNGS: Breath sounds equal, clear to auscultation bilaterally. No wheezes, and no crackles HEART: Regular rate and rhythm, normal S1 and S2, no murmurs, rubs or gallops ABDOMEN: + epigastric tenderness, normoactive bowel sounds. No guarding, no rebound. No masses EXTREMITIES: Normal range of motion, no edema. No clubbing or cyanosis. No cords, erythema, or tenderness NEUROLOGICAL: Cranial nerves II through XII intact. 5/5 strength and sensation in all extremities, Normal speech, normal gait, normal cerebellar function SKIN: Warm, Dry, normal turgor, no rashes or lesions noted. - Medical Decision Making 12/01/19 11:02 64 F with epigastric pain and nausea. Reportedly had abnormal LFTs on outpt labs. - Labs, lipase - RUQ US - GI cocktail 12/01/19 11:26 Labs wnl US unremarkable Pt reassessed - pain and nausea improved. Tolerating PO Pt is well appearing, with normal vitals. Clinically stable for DC at this time. I discussed the physical exam findings, ancillary test results and final diagnoses with the patient. I answered all of the patient's questions. The patient was satisfied with the care received and felt comfortable with the discharge plan and treatment plan. The patient agrees to follow up with the primary care physician within 24-72 hours.
[2019-12-01 11:32] VITALS: BP 134/84; PULSE 67
--- NOTE | 2019-12-01 23:25 | EKG ---
Test Reason : Blood Pressure : / mmHG Vent. Rate : 073 BPM Atrial Rate : 073 BPM P-R Int : 128 ms QRS Dur : 092 ms QT Int : 360 ms P-R-T Axes : 055 013 046 degrees QTc Int : 396 ms NORMAL SINUS RHYTHM NORMAL ECG WHEN COMPARED WITH ECG OF 29-APR-2018 14:03, NO SIGNIFICANT CHANGE WAS FOUND Confirmed by VALENTINA DRAPER MD ([id number]) on 12/01/2019 11:24:38 PM Referred By: YOLANDA MANZANO Confirmed By:VALENTINA DRAPER MD
== END 2019-12-01 11:35 | disposition home or self-care (01) ==
LOC: FER 09:17
DX: K29.00 Acute gastritis without bleeding (principal)
CPT/HCPCS: 36415; 71045-TC-FY; 76700-TC; 80053; 81003; 81015; 82550; 83605; 83690; 84484; 85025; 87086; 87186; 93005; 99284-25

== ENCOUNTER 2019-12-05 14:06 | Emergency (ER) | payer OTHER ==
[2019-12-05 14:12] VITALS: BP 130/87; PULSE 88; TEMP 98; BMI 30.2
--- NOTE | 2019-12-05 15:05 | PDOC ---
History of Present Illness - General Chief Complaint: Vomiting/Diarrhea Stated Complaint: V/D Time Seen by Provider: 12/05/19 14:09 - History of Present Illness Initial Comments: 12/05/19 15:51 Chief complaint: Epigastric pain HPI: Presented to the ER several days ago with epigastric pain. Lab work, ultrasound, and chest x-ray were negative. A UTI was coincidentally found and the patient was begun on Macrodantin. Her abdominal pain and symptoms of reflux worsened with this medication. Urine culture subsequently grew enterococcus faecalis sensitive to all but tetracycline Review of systems: Denies fever/chills, back pain, hematuria, vaginal bleeding or discharge, lower abdominal pain, pelvic pain, vomiting, diarrhea. Admits nausea and anorexia. 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 Supervised by specialist at [facility]. This therapy was recently discontinued approximately 3 weeks ago. Has had a sensitive stomach the entire time of therapy. 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 Denies tobacco alcohol or drugs. Has been depressed by her illness but there are no suicidal ideations or attempts to hurt herself or others Family history: Reviewed and noncontributory Physical exam: Alert and oriented well-developed well-nourished no acute distress cooperative Afebrile, vital signs normal No pallor or icterus. PERRLA, fundi benign, ENT clear Neck supple without bruit mass or nodes Chest clear with full breath sounds bilaterally, no wheezes rales or rhonchi CV S1-S2 normal without murmur rub or gallop pulses full and symmetric no JVD or edema no bruits Abdomen nondistended, bowel sounds normal. Soft without mass organomegaly. There is mild tenderness to deep palpation localized to the epigastrium without guarding or rebound. No tenderness over the liver or spleen. Lynn's negative. No lower quadrant tenderness Extremities no CCE Neurological intact Skin clear, no rash, adequate turgor and wet mucous membranes Impression: GERD, compounded by Macrodantin, possible early peptic ulcer disease. LFTs and lipase were negative at prior visit. UTI greater than 1000 colonies Enterococcus faecalis sensitive to everything but tetracycline Plan: Protonix for symptomatic treatment of GI disease. Zofran for nausea. Discontinue Macrodantin. Begin amoxicillin for UTI, with repeat urinalysis and culture after therapy is finished. Probiotic. GI referral. Patient already has made an appointment with . Fully ambulatory and in no significant pain or other distress at discharge to follow-up as directed. Past History - Past Medical History Allergies/Adverse Reactions: Allergies Allergy/AdvReac Type Severity Reaction Status Date / Time Cephalosporins Allergy Low Blood Verified 12/05/19 14:08 Pressure Sulfa (Sulfonamide Allergy Rash Verified 12/05/19 14:08 Antibiotics) [Sulfa(Sulfonamide Antibiotics)] Home Medications: Ambulatory Orders Amoxicillin - [Amoxicillin 250mg Capsule -] 250 mg PO BID #14 capsule 12/05/19 Pantoprazole Sodium [Protonix] 40 mg PO DAILY #20 tablet. 12/05/19 Anemia: No Asthma: No Cancer: No Cardiac Disorders: Yes (tachycardia) CVA: No COPD: No CHF: No Dementia: No Diabetes: No GI Disorders: No Disorders: No HTN: Yes (not medicated) Hypercholesterolemia: No Liver Disease: No Seizures: No Thyroid Disease: No - Surgical History Abdominal Surgery: No Appendectomy: No Cardiac Surgery: No Cholecystectomy: No Lung Surgery: No Neurologic Surgery: No Orthopedic Surgery: No - Psycho Social/Smoking Cessation Hx Smoking History: Never smoked Have you smoked in the past 12 months: No Hx Alcohol Use: No Drug/Substance Use Hx: No Substance Use Type: None *Physical Exam - Vital Signs Last Vital Signs Temp Pulse Resp BP Pulse Ox 98.0 F 88 18 130/87 99 12/05/19 14:08 12/05/19 14:08 12/05/19 14:08 12/05/19 14:08 12/05/19 14:08 Discharge - Discharge Information Problems reviewed: Yes Clinical Impression/Diagnosis: Gastritis Qualifiers: Gastritis type: unspecified gastritis Chronicity: acute Gastritis bleeding: without bleeding Qualified Code(s): K29.00 - Acute gastritis without bleeding UTI (urinary tract infection) Qualifiers: Urinary tract infection type: acute cystitis Hematuria presence: without hematuria Qualified Code(s): N30.00 - Acute cystitis without hematuria Condition: Stable - Admission No - Additional Discharge Information Prescriptions: Amoxicillin - [Amoxicillin 250mg Capsule -] 250 mg PO BID #14 capsule Pantoprazole Sodium [Protonix] 40 mg PO DAILY #20 tablet.dr - Follow up/Referral - Patient Discharge Instructions Patient Printed Discharge Instructions: DI for Gastroesophageal Reflux Disease (GERD), DI for Urinary Tract Infection (UTI) Additional Instructions: Continue probiotic. Florastor, Align, Natures Bounty 10 are good options. If no improvement, consult GI specialist for further evaluation. Repeat urine culture after antibiotic therapy is finished. Stop Macrobid (Macrodantin, nitrofurantoin) and begin amoxicillin. This Should have no effect on your stomach. - Post Discharge Activity
[2019-12-05 15:58] LABS: EPITHELIAL CELLS FEW /hpf
== END 2019-12-05 15:16 | disposition home or self-care (01) ==
LOC: FER 14:06
DX: K29.00 Acute gastritis without bleeding (principal); N30.00 Acute cystitis without hematuria; Z88.2 Allergy status to sulfonamides; Z88.8 Allergy status to other drugs, medicaments and biological substances; R00.0 Tachycardia, unspecified; I10 Essential (primary) hypertension
CPT/HCPCS: 81003; 81015; 87077; 87086; 99281-25

== ENCOUNTER 2020-05-20 15:53 | Emergency (ER) | payer BC, OTHER ==
[2020-05-20 15:58] VITALS: BP 155/89; PULSE 108; TEMP 97.7; BMI 27.4
[2020-05-20] MEDS ORDERED: diphenhydrAMINE HCL 25 MG CAPSULE (FP) PO ONE ×2 (16:10→16:12)
--- NOTE | 2020-05-20 16:30 | PDOC ---
Documentation entered by Anthony Horta SCRIBE, acting as scribe for Jocelyn Sapp MD. Jocelyn Sapp MD: This documentation has been prepared by the Mychal kwon Angel, SCRIBE, under my direction and personally reviewed by me in its entirety. I confirm that the documentation accurately reflects all work, treatment, procedures, and medical decision making performed by me. History of Present Illness - General Chief Complaint: Pain, Acute Stated Complaint: BURNING THROAT AFTER EATING SEAFOOD SALAD History Source: Patient Exam Limitations: No Limitations - History of Present Illness Initial Comments: 05/20/20 16:19 The patient is a 65 year old female with a significant past medical history of Lupus, Rheumatoid Arthritis and reactive hypoglycemia who presents to the ED with a burning sensation in her throat. The patient states she was eating seafood just before her arrival and after a few bites she noticed a burning sensation in her throat. The patient states it became hard to speak and notes pressure in her chest. The patient reports flushing of the skin as well but she was outside. The patient denies difficulty swallowing, SOB, fever/chills or cough. Past History - Medical History Allergies/Adverse Reactions: Allergies Allergy/AdvReac Type Severity Reaction Status Date / Time Cephalosporins Allergy Low Blood Verified 05/20/20 15:54 Pressure Sulfa (Sulfonamide Allergy Rash Verified 05/20/20 15:54 Antibiotics) [Sulfa(Sulfonamide Antibiotics)] Home Medications: Ambulatory Orders Pantoprazole Sodium [Protonix] 40 mg PO DAILY #20 tablet. 12/05/19 predniSONE [Deltasone -] 40 mg PO DAILY #4 tablet 05/20/20 Anemia: No Asthma: No Cancer: No Cardiac Disorders: Yes (tachycardia) CVA: No COPD: No CHF: No Dementia: No Diabetes: No GI Disorders: No Disorders: No HTN: Yes (not medicated) Hypercholesterolemia: No Liver Disease: No Seizures: No Thyroid Disease: No - Surgical History Abdominal Surgery: No Appendectomy: No Cardiac Surgery: No Cholecystectomy: No Lung Surgery: No Neurologic Surgery: No Orthopedic Surgery: No - Psycho-Social/Smoking History Smoking History: Never smoked Have you smoked in the past 12 months: No Review of Systems - Review of Systems Able to Perform ROS?: Yes Comments:: 05/20/20 16:22 GENERAL/CONSTITUTIONAL: No fever or chills. No weakness. HEAD, EYES, EARS, NOSE AND THROAT: +Burning in throat. No change in vision. No ear pain or discharge. CARDIOVASCULAR: +Chest pressure. shortness of breath. RESPIRATORY: No cough, wheezing, or hemoptysis. GASTROINTESTINAL: No nausea, vomiting, diarrhea or constipation. GENITOURINARY: No dysuria, frequency, or change in urination. MUSCULOSKELETAL: No joint or muscle swelling or pain. No neck or back pain. SKIN: No rash NEUROLOGIC: No headache, vertigo, loss of consciousness, or change in strength/sensation. ENDOCRINE: No increased thirst. No abnormal weight change. HEMATOLOGIC/LYMPHATIC: No anemia, easy bleeding, or history of blood clots. ALLERGIC/IMMUNOLOGIC: No hives or skin allergy. *Physical Exam - Physical Exam GENERAL: Awake, alert, and fully oriented, in no acute distress HEAD: No signs of trauma EYES: PERRLA, EOMI, sclera anicteric, conjunctiva clear ENT: Auricles normal inspection, hearing grossly normal, nares patent, oropharynx clear without exudates. Moist mucosa. Uvula midline. NECK: Normal ROM, supple, no lymphadenopathy, JVD, or masses LUNGS: Breath sounds equal, clear to auscultation bilaterally. No wheezes, and no crackles HEART: Tachycardic with regular rhythm, normal S1 and S2, no murmurs, rubs or gallops ABDOMEN: Soft, nontender, normoactive bowel sounds. No guarding, no rebound. No masses EXTREMITIES: Normal range of motion, no edema. No clubbing or cyanosis. No cords, erythema, or tenderness NEUROLOGICAL: Cranial nerves II through XII grossly intact. Normal speech, no rmal gait SKIN: Warm, Dry, normal turgor, no rashes or lesions noted. Heart Score/ECG Review - ECG Impressions Comment:: EKG read 16:43- NSR 85 bpm, no acute ST/T changes Medical Decision Making - Medical Decision Making 05/20/20 16:29 Salad did not contain fish as far as she knows, however, scombroid is possible if there was any deep water fish. This may also be a food allergy that she is not aware of, first time. No signs of airway obstruction. Will give benadryl and monitor for improvement. 05/20/20 17:47 Pt significantly improved. Skin flushing resolved completely, which would suggest it was scombroid. Will give prednisone, as she still has scratchy sensation in her throat, in case it was an allergy, three day course. Benadryl prn. Scombroid instructions not available in [place], will give her a handout from the FDA. Discharge - Discharge Information Problems reviewed: Yes Clinical Impression/Diagnosis: Adverse food reaction Qualifiers: Encounter type: initial encounter Qualified Code(s): T78.1XXA - Other adverse food reactions, not elsewhere classified, initial encounter Condition: Stable Disposition: HOME - Additional Discharge Information Prescriptions: predniSONE [Deltasone -] 40 mg PO DAILY #4 tablet - Follow up/Referral - Patient Discharge Instructions Patient Printed Discharge Instructions: DI for Food Allergy - Post Discharge Activity
[2020-05-20] MEDS ORDERED: predniSONE 20 MG TABLET (UD) PO ONE (17:46)
[2020-05-20] MEDS ORDERED: predniSONE 20 MG TABLET (UD) ONE (17:53)
--- NOTE | 2020-05-21 13:37 | EKG ---
Test Reason : Blood Pressure : / mmHG Vent. Rate : 085 BPM Atrial Rate : 085 BPM P-R Int : 132 ms QRS Dur : 090 ms QT Int : 362 ms P-R-T Axes : 059 036 051 degrees QTc Int : 430 ms NORMAL SINUS RHYTHM NORMAL ECG WHEN COMPARED WITH ECG OF 01-DEC-2019 09:46, NO SIGNIFICANT CHANGE WAS FOUND Confirmed by MD Martinez Edward ([id number]) on 05/21/2020 1:36:49 PM Referred By: DR WARE Confirmed By:Franky Martinez MD
== END 2020-05-20 18:00 | disposition home or self-care (01) ==
LOC: FER 15:53
DX: T78.1XXA Other adverse food reactions, not elsewhere classified, initial encounter (principal)
CPT/HCPCS: 93005; 99283-25

== ENCOUNTER 2022-12-12 15:05 | Emergency (ER) | payer OTHER, MEDICARE ==
[2022-12-12 15:28] VITALS: BP 146/88; PULSE 89; RESP 20; TEMP 98.9; BMI 29.2
[2022-12-12] MEDS ORDERED: IBUPROFEN 400 MG TABLET (FP) PO ONE ×2 (15:34→15:38)
== END 2022-12-12 17:19 | disposition home or self-care (01) ==
LOC: FER 15:05
DX: M25.542 Pain in joints of left hand (principal); W23.0XXA Caught, crushed, jammed, or pinched between moving objects, initial encounter
CPT/HCPCS: 73110-TC-LT-FY; 73130-TC-LT-FY; 99283-25

== ENCOUNTER 2025-09-01 13:30 | Emergency (ER) | payer OTHER, MEDICARE ==
[2025-09-01] MEDS ORDERED: LIDOCAINE 5% TOPICAL PATCH ONE (13:52)
[2025-09-01] MEDS ORDERED: KETOROLAC TROMETHAMINE 30 MG/1 ML VIAL ONE (13:52)
[2025-09-01] MEDS: KETOROLAC TROMETHAMINE 30 MG/1 ML VIAL IM ONE (13:55)
[2025-09-01] MEDS: LIDOCAINE 5% TOPICAL PATCH TP ONE (13:56)
[2025-09-01 14:01] VITALS: BP 134/84; PULSE 77; RESP 18; TEMP 98.2; BMI 28.7
[2025-09-01 14:24] LABS: EPITHELIAL CELLS 0-5 /hpf
[2025-09-01] MEDS ORDERED: LIDOCAINE PATCH REMOVAL MC ONE (22:00)
== END 2025-09-01 14:25 | disposition home or self-care (01) ==
LOC: FER 13:30
PROC: 3E0233Z Introduction of Anti-inflammatory into Muscle, Percutaneous Approach (ICD-10-PCS; principal; 2025-09-01)
DX: M54.41 Lumbago with sciatica, right side (principal)
CPT/HCPCS: 81003; 81015; 99284-25